=== PATIENT | male | born 1950 | race Caucasian/White ===

== ENCOUNTER 2022-10-21 15:06 | Observation (INO) ==
[2022-10-21 15:57] LABS: ABS Basophils 0.1 10^3/uL (0.0-0.1); ABS Eosinophils 0.1 10^3/uL (0.0-0.5); ABS Lymphocytes 1.1 10^3/uL (1.0-4.8); ABS Monocytes 0.6 10^3/uL (0.0-1.1); ABS Neutrophils 7.1 10^3/uL (1.5-7.6); Eosinophil % 0.8 %; Hematocrit 21.9 % (38-53); Hemoglobin 7.6 g/dL (13.2-16.3); Lymphocyte % 12.8 %; Mean Corpuscular Hemoglobin 31.1 pg (27-33); Mean Corpuscular Hgb Conc 34.5 g/dL (31-36); Mean Platelet Volume 6.6 fL (7.5-11.2); Platelet Count 260 10^3/uL (150-450); Red Blood Count 2.43 10^6/uL (4.06-5.63); Red Cell Distribution Width 13.6 % (12-17)
[2022-10-21 16:29] LABS: Albumin 3.5 g/dL (3.2-5.2); Albumin/Globulin Ratio 0.8 (1-3); C Reactive Protein 60.91 mg/L (<8.01); Calcium 8.8 mg/dL (8.6-10.3); Creatinine, Serum 5.29 mg/dL (0.67-1.17); Globulin 4.6 g/dL (2-4); Potassium 4.7 mmol/L (3.5-5.0); Total Bilirubin 0.3 mg/dL (0.2-1.0); Total Protein 8.1 g/dL (6.4-8.9); eGFR CKD-EPI 10.9 (>60)
[2022-10-21 21:18] LABS: Urine Appearance Turbid; Urine Bilirubin Negative (Negative); Urine Blood 2+ (Negative); Urine Color Yellow; Urine Glucose Negative (Negative); Urine Ketones Negative (Negative); Urine Nitrite Negative (Negative); Urine Protein Negative (Negative); Urine Specific Gravity 1.006 (1.002-1.030); Urine Urobilinogen Negative (Negative)
[2022-10-21 21:24] LABS: Urine Bacteria 3+ (Absent); Urine Red Blood Cell 3+(>10/hpf) (Absent); Urine White Blood Cell 3+(>20/hpf) (Absent)
[2022-10-21] MEDS ORDERED: cefTRIAXone 1 gm/50 mL D5W 1 GM/50 ML BAG IV ONE (22:52)
[2022-10-21] MEDS ORDERED: Lactated Ringers 1000 ml BAG 1,000 ML IV ONE (22:52)
[2022-10-22] MEDS ORDERED: NS 0.45% 1000 ml BAG 1,000 ML IV ONE (03:26)
[2022-10-22] MEDS ORDERED: NS 0.45% 1000 ml BAG 1,000 ML IV SCH ×2 (04:00→04:56)
[2022-10-22 06:23] LABS: ABS Basophils 0.1 10^3/uL (0.0-0.1); ABS Eosinophils 0.1 10^3/uL (0.0-0.5); ABS Lymphocytes 1.4 10^3/uL (1.0-4.8); ABS Monocytes 0.4 10^3/uL (0.0-1.1); ABS Neutrophils 4.9 10^3/uL (1.5-7.6); Eosinophil % 1.2 %; Hematocrit 18.3 % (38-53); Hemoglobin 6.5 g/dL (13.2-16.3); Mean Corpuscular Hemoglobin 31.8 pg (27-33); Mean Corpuscular Hgb Conc 35.6 g/dL (31-36); Mean Corpuscular Volume 89.4 fL (80-97); Mean Platelet Volume 6.9 fL (7.5-11.2); Platelet Count 220 10^3/uL (150-450); Red Blood Count 2.05 10^6/uL (4.06-5.63); Red Cell Distribution Width 13.3 % (12-17); White Blood Count 6.9 10^3/uL (3.6-10.2)
[2022-10-22] MEDS: NS 0.45% 1000 ml BAG 1,000 ML IV SCH ×3 (06:30→17:58)
[2022-10-22 06:41] LABS: Albumin/Globulin Ratio 0.8 (1-3); Calcium 8.3 mg/dL (8.6-10.3); Creatinine, Serum 4.84 mg/dL (0.67-1.17); Globulin 3.9 g/dL (2-4); Magnesium 1.7 mg/dL (1.9-2.7); Potassium 4.5 mmol/L (3.5-5.0); Total Bilirubin 0.3 mg/dL (0.2-1.0); Total Protein 6.9 g/dL (6.4-8.9); eGFR CKD-EPI 12.1 (>60)
[2022-10-22 07:28] LABS: Ferritin 262.4 ng/mL (24-336)
[2022-10-22 07:32] LABS: Folate 13.98 ng/mL (5.90-24.80)
[2022-10-22] MEDS ORDERED: Magnesium Sulfate 2 gm BAG 2 GM/50 ML BAG IVPB ONE (08:12)
[2022-10-22] MEDS: Enoxaparin 30 MG/0.3 ML SYR SUBCUT SCH (10:27)
[2022-10-22 13:18] LABS: Calcium 8.4 mg/dL (8.6-10.3); Creatinine, Serum 4.74 mg/dL (0.67-1.17); Potassium 4.7 mmol/L (3.5-5.0); eGFR CKD-EPI 12.4 (>60)
[2022-10-22 17:08] LABS: Hematocrit 24.3 % (38-53); Hemoglobin 8.5 g/dL (13.2-16.3)
[2022-10-22 17:25] LABS: Calcium 8.5 mg/dL (8.6-10.3); Creatinine, Serum 4.42 mg/dL (0.67-1.17); Potassium 5.2 mmol/L (3.5-5.0); eGFR CKD-EPI 13.5 (>60)
[2022-10-22] MEDS: cefTRIAXone 1 gm/50 mL D5W 1 GM/50 ML BAG IV SCH (21:19)
[2022-10-22 23:11] LABS: Calcium 8.3 mg/dL (8.6-10.3); Creatinine, Serum 4.3 mg/dL (0.67-1.17); Potassium 5.2 mmol/L (3.5-5.0)
[2022-10-23] MEDS: NS 0.45% 1000 ml BAG 1,000 ML IV SCH ×2 (04:37→14:29)
[2022-10-23 07:00] LABS: Calcium 8.4 mg/dL (8.6-10.3); Creatinine, Serum 4.17 mg/dL (0.67-1.17); Potassium 4.8 mmol/L (3.5-5.0); eGFR CKD-EPI 14.5 (>60)
[2022-10-23 08:43] LABS: ABS Eosinophils 0.1 10^3/uL (0.0-0.5); ABS Lymphocytes 1.2 10^3/uL (1.0-4.8); ABS Monocytes 0.4 10^3/uL (0.0-1.1); ABS Neutrophils 4.9 10^3/uL (1.5-7.6); Eosinophil % 1.2 %; Hematocrit 26.3 % (38-53); Hemoglobin 9.2 g/dL (13.2-16.3); Lymphocyte % 17.6 %; Mean Corpuscular Hemoglobin 30.6 pg (27-33); Mean Corpuscular Hgb Conc 35.1 g/dL (31-36); Mean Corpuscular Volume 87.1 fL (80-97); Mean Platelet Volume 6.6 fL (7.5-11.2); Nucleated Red Blood Cells % 0.1 /100 WBC (0.0-0.4); Platelet Count 264 10^3/uL (150-450); Red Blood Count 3.02 10^6/uL (4.06-5.63); Red Cell Distribution Width 14.5 % (12-17); White Blood Count 6.6 10^3/uL (3.6-10.2)
[2022-10-23] MEDS: Enoxaparin 30 MG/0.3 ML SYR SUBCUT SCH (09:17)
[2022-10-23] MEDS: Sodium Bicarb 650 mg (ANTACID) TAB PO SCH ×2 (17:10→22:31)
[2022-10-23] MEDS: cefTRIAXone 1 gm/50 mL D5W 1 GM/50 ML BAG IV SCH (22:31)
[2022-10-24] MEDS: NS 0.45% 1000 ml BAG 1,000 ML IV SCH (01:05)
[2022-10-24] MEDS: Sodium Bicarb 650 mg (ANTACID) TAB PO SCH (06:30)
[2022-10-24 06:39] LABS: ABS Basophils 0.1 10^3/uL (0.0-0.1); ABS Eosinophils 0.2 10^3/uL (0.0-0.5); ABS Lymphocytes 2.1 10^3/uL (1.0-4.8); ABS Monocytes 0.6 10^3/uL (0.0-1.1); ABS Neutrophils 4.3 10^3/uL (1.5-7.6); Eosinophil % 2.4 %; Hematocrit 26.7 % (38-53); Hemoglobin 9.3 g/dL (13.2-16.3); Lymphocyte % 28.7 %; Mean Corpuscular Hemoglobin 30.3 pg (27-33); Mean Corpuscular Hgb Conc 34.7 g/dL (31-36); Mean Corpuscular Volume 87.3 fL (80-97); Mean Platelet Volume 6.4 fL (7.5-11.2); Platelet Count 249 10^3/uL (150-450); Red Blood Count 3.06 10^6/uL (4.06-5.63); Red Cell Distribution Width 14.2 % (12-17); White Blood Count 7.2 10^3/uL (3.6-10.2)
[2022-10-24 06:54] LABS: Calcium 8.4 mg/dL (8.6-10.3); Creatinine, Serum 3.74 mg/dL (0.67-1.17); Potassium 4.7 mmol/L (3.5-5.0); eGFR CKD-EPI 16.5 (>60)
[2022-10-24] MEDS: Enoxaparin 30 MG/0.3 ML SYR SUBCUT SCH (08:05)
[2022-10-24 10:19] VITALS: BP 128/71
[2022-10-27 12:43] LABS: Albumin 2.3 g/dL (3.4-4.7); Flag, M-protein Isotype Negative (Negative); Total Protein 6.5 g/dL (6.3 - 7.9)
== END 2022-10-24 13:30 | disposition home or self-care (01) ==
LOC: ED 15:06 → EDHOLD 15:06 → SUATTDRO 10-22 05:41 → SSU 10-22 09:58
PROVIDERS: ADMIT Internal Medicine; ATTEND Hospitalist